=== PATIENT | female | born 1985 | race Caucasian/White ===

== ENCOUNTER 2016-02-25 13:39 | Emergency (ER) | payer SELFPAY ==
--- NOTE | 2016-02-25 13:50 | ER Document Report ---
ED Medical Screen (RME) - General Stated Complaint: COLD SYMPTOMS Notes: Cough congestion with discharge over the last 3-4 days. I greeted and performed a rapid initial assessment of this patient. Comprehensive ED assessment and evaluation of the patient, analysis of test results and completion of the medical decision making process will be conducted by additional ED providers. - Related Data Allergies/Adverse Reactions: No Known Allergies Allergy (Verified 09/06/13 08:52) Past Medical History - Immunizations Immunizations up to date: No Hx Diphtheria, Pertussis, Tetanus Vaccination: Yes Physical Exam - Vital signs Vitals: Temp Pulse Resp BP Pulse Ox 99.0 F 98 16 125/72 97 02/25/16 13:48 02/25/16 13:48 02/25/16 13:48 02/25/16 13:48 02/25/16 13:48 Course - Vital Signs Vital signs: Temp Pulse Resp BP Pulse Ox 99.0 F 98 16 125/72 97 02/25/16 13:48 02/25/16 13:48 02/25/16 13:48 02/25/16 13:48 02/25/16 13:48
[2016-02-25] MEDS ORDERED: PREDNISONE 20 MG TABLET PO ONE (14:46)
[2016-02-25] MEDS ORDERED: ALBUTEROL SULFATE HFA (90 MCG/PUFF) 8 GM MDI (1 MDI/ER DISP) IH ONE (14:46)
--- NOTE | 2016-02-25 14:47 | ER Document Report ---
ED Respiratory Problem - General Chief Complaint: Cough Stated Complaint: COLD SYMPTOMS Time seen by provider: 14:35 Mode of Arrival: Ambulatory Information source: Patient, [facility] Records Notes: This 30-year-old female patient comes emergency room with 2 day history of dry cough, sore throat, short of breath and hard to breathe. She also complains of fatigue. She does smoke a half pack a day and occasionally drinks alcohol. Patient she takes is the Depo shot she received a few weeks ago. There is no history of fever. TRAVEL OUTSIDE OF THE [place] 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 denies: Fever EENT: Throat pain Cardiovascular: No symptoms reported Respiratory: Cough, Hurts to breathe, Short of breath, Wheezing. denies: Sputum Gastrointestinal: No symptoms reported Genitourinary: No symptoms reported Female Genitourinary: No symptoms reported Musculoskeletal: No symptoms reported Skin: No symptoms reported Hematologic/Lymphatic: No symptoms reported Neurological/Psychological: No symptoms reported Physical Exam - Vital signs Vitals: Temp Pulse Resp BP Pulse Ox 99.0 F 98 16 125/72 97 02/25/16 13:48 02/25/16 13:48 02/25/16 13:48 02/25/16 13:48 02/25/16 13:48 Interpretation: Normal - HEENT Head: Normocephalic, Atraumatic Eyes: Normal Pupils: PERRL Tympanic membrane: Normal Pharynx: Erythema - Minimal erythema. No: Exudate Neck: Normal - Respiratory Respiratory status: No respiratory distress Breath sounds: Nonproductive cough, Rhonchi, Wheezing - Cardiovascular Rhythm: Regular Heart sounds: Normal auscultation Murmur: No - Abdominal Inspection: Normal - Back Back: Normal - Extremities General upper extremity: Normal inspection General lower extremity: Normal inspection - Neurological Neuro grossly intact: Yes - Psychological Associated symptoms: Normal affect, Normal mood - Skin Skin Temperature: Warm Skin Moisture: Dry Skin Color: Normal Course - Vital Signs Vital signs: Temp Pulse Resp BP Pulse Ox 99.0 F 98 16 125/72 97 02/25/16 13:48 02/25/16 13:48 02/25/16 13:48 02/25/16 13:48 02/25/16 13:48 Discharge - Discharge Clinical Impression: Bronchitis with bronchospasm Upper respiratory tract infection Qualifiers: URI type: unspecified viral URI Qualified Code(s): J06.9 - Acute upper respiratory infection, unspecified; B97.89 - Other viral agents as the cause of diseases classified elsewhere Condition: Stable Disposition: HOME, SELF-CARE Additional Instructions: Bronchitis with Bronchospasm (Wheezing): You have bronchitis with bronchospasm (wheezing). Sometimes people develop wheezing with a chest cold. This occurs either because of an underlying tendency toward asthma or because the virus itself irritates the bronchial tubes. This irritation causes cough, shortness of breath, and wheezing. Emergency treatment of bronchospasm may include adrenaline shots or bronchodilator aerosol. You may feel lightheaded and have a rapid pulse for an hour or two. Rest and get plenty of fluids. At home, we'll treat you with a bronchodilator inhaler. Corticosteroids may be required for some patients. Until you recover, avoid chemical fumes, dusts, pollens, and exercising in very cold or dry air. If you smoke, stop now! Most cases of bronchitis get better without antibiotics. We prescribe antibiotics when we believe bacteria are damaging your airways, or if there's high risk the bronchitis will worsen into pneumonia. Increase your fluid intake. A cool mist humidifier may make your lungs more comfortable. An expectorant (cough medicine that loosens phlegm) can help. Repeated episodes of bronchitis and bronchospasm may result in lung damage -- for example, chronic bronchitis, recurrent pneumonias, or emphysema. If you develop a fever, increased wheezing, chest pain, or severe shortness of breath, you should contact the doctor immediately. START THE PREDNISONE PRESCRIBED TOMORROW. USE THE INHALER 2 PUFFS EVERY 4 HOURS FOR WHEEZING NEEDED. DRINK PLENTY OF FLUIDS. TRY ROBITUSSIN-DM FOR COUGH. TAKE TYLENOL AND MOTRIN FOR PAIN AND FEVER IF NEEDED. REST. STOP SMOKING. FOLLOW UP WITH A LOCAL MEDICAL DOCTOR IF NOT IMPROVING. RETURN TO THE EMERGENCY ROOM IF ANY NEW OR WORSENING SYMPTOMS. Prescriptions: Prednisone [Deltasone 10 mg Tablet] 10 mg PO ASDIR PRN #21 tablet PRN Reason:
[2016-02-25 15:10] VITALS: BP 130/81
== END 2016-02-25 15:16 | disposition home or self-care (01) ==
LOC: ER 13:39
DX: J40 Bronchitis, not specified as acute or chronic (principal); J06.9 Acute upper respiratory infection, unspecified; B97.89 Other viral agents as the cause of diseases classified elsewhere; R05 Cough; J02.9 Acute pharyngitis, unspecified; R06.02 Shortness of breath; R53.83 Other fatigue; R07.1 Chest pain on breathing; R06.2 Wheezing; F17.210 Nicotine dependence, cigarettes, uncomplicated; Z79.3 Long term (current) use of hormonal contraceptives
CPT/HCPCS: 99283; J7512; J3490

== ENCOUNTER 2017-08-25 10:19 | Inpatient (IN) | payer SELFPAY ==
[2017-08-25] MEDS ORDERED: NORMAL SALINE 1000 ML 1,000 ML IV ONE (10:39)
[2017-08-25] MEDS ORDERED: FENTANYL CITRATE INJ/PF 100 MCG/2 ML AMPUL IV ONE (10:39)
--- NOTE | 2017-08-25 10:41 | ER Document Report ---
ED Medical Screen (RME) - General Chief Complaint: Abdominal Pain Stated Complaint: ABDOMINAL PAIN Time Seen by Provider: 08/25/17 10:35 Notes: RAPID MEDICAL EVALUATION DISCLOSURE I have seen this patient as part of a Rapid Medical Evaluation and, if applicable, placed any initially appropriate orders. The patient will be seen and fully evaluated, including a full history and physical exam, by a provider ( in Main ED or Fast Track) when a room becomes available. 32-year-old female here with complaints of diffuse abdominal pain that started yesterday while she was at work. Pain is worse with movement. Pain is improved with minimizing movement. She has tried Advil without much relief. She has had one episode of diarrhea but denies any fevers chills nausea vomiting dysuria hematuria frequency hesitancy. She denies any previous history of intra-abdominal surgery. EXAM Moderate tachycardia Diffuse moderate abdominal TTP Exquisite right lower quadrant TTP TRAVEL OUTSIDE OF THE [place] IN LAST 30 DAYS: No - Related Data Allergies/Adverse Reactions: No Known Allergies Allergy (Verified 08/25/17 10:35) Past Medical History - Social History Frequency of alcohol use: Social Renal/ Medical History: Denies: Hx Peritoneal Dialysis - Immunizations Immunizations up to date: No Hx Diphtheria, Pertussis, Tetanus Vaccination: Yes Physical Exam - Vital signs Vitals: Temp Pulse Resp BP Pulse Ox 99.8 F 123 H 18 132/77 H 99 08/25/17 10:08/25/17 10:08/25/17 10:08/25/17 10:08/25/17 10:24 Course - Vital Signs Vital signs: Temp Pulse Resp BP Pulse Ox 99.8 F 123 H 18 132/77 H 99 08/25/17 10:24 08/25/17 10:24 08/25/17 10:24 08/25/17 10:24 08/25/17 10:24
[2017-08-25 11:35] LABS: HEMOGLOBIN 13.9 g/dL (12.0-15.5); MEAN CORPUSCULAR HEMOGLOBIN 31.4 pg (27.0-33.4); MEAN CORPUSCULAR HGB CONC 33.9 g/dL (32.0-36.0); MEAN CORPUSCULAR VOLUME 93 fl (80-97); PLATELET COUNT 271 10^3/uL (150-450); RED BLOOD COUNT 4.43 10^6/uL (3.72-5.28); RED CELL DISTRIBUTION WIDTH 13.6 % (11.5-14.0); WHITE BLOOD COUNT 17.9 10^3/uL (4.0-10.5)
[2017-08-25 11:47] LABS: APPEARANCE,URINE CLOUDY; BILIRUBIN,URINE NEGATIVE (NEGATIVE); COLOR,URINE YELLOW; GLUCOSE, URINE NEGATIVE (NEGATIVE); KETONES,URINE 80 mg/dL (NEGATIVE); LEUKOCYTE ESTERASE,URINE TRACE (NEGATIVE); NITRITE,URINE POSITIVE (NEGATIVE); PROTEIN,URINE NEGATIVE (NEGATIVE); URINE SPECIFIC GRAVITY 1.014; UROBILINOGEN,URINE NEGATIVE mg/dL (<2.0)
[2017-08-25 11:52] LABS: ALANINE AMINOTRANSFERASE 60 U/L (9-52); ALBUMIN 4.2 g/dL (3.5-5.0); ALKALINE PHOSPHATASE 126 U/L (38-126); ANION GAP 11 (5-19); ASPARTATE AMINO TRANSFERASE 44 U/L (14-36); BILIRUBIN,DIRECT 0.3 mg/dL (0.0-0.4); BILIRUBIN,TOTAL 0.9 mg/dL (0.2-1.3); BLOOD UREA NITROGEN 5 mg/dL (7-20); CALCIUM 9.6 mg/dL (8.4-10.2); CARBON DIOXIDE 28 mmol/L (22-30); CHLORIDE 98 mmol/L (98-107); GLUCOSE 105 mg/dL (75-110); LIPASE 58.3 U/L (23-300); POTASSIUM 3.7 mmol/L (3.6-5.0)
[2017-08-25 11:53] LABS: ABSOLUTE LYMPHOCYTES# (MANUAL) 0.5 10^3/uL (0.5-4.7); ABSOLUTE MONOCYTES # (MANUAL) 1.6 10^3/uL (0.1-1.4); ABSOLUTE NEUTROPHILS# (MANUAL) 15.8 10^3/uL (1.7-8.2); BAND NEUTROPHILS % (MANUAL) 7 % (3-5); BASOPHILS % (MANUAL) 0 % (0-2); EOSINOPHILS % (MANUAL) 0 % (0-6); LYMPHOCYTES % (MANUAL) 3 % (13-45); MONOCYTES % (MANUAL) 9 % (3-13); SEGMENTED NEUTROPHILS % (MAN) 81 % (42-78); TOTAL CELLS COUNTED 100
[2017-08-25 11:54] LABS: PLATELET COMMENT ADEQUATE; RBC MORPHOLOGY COMMENT NORMO-CYTIC/CHROMIC; TOXIC GRANULATION 1+; TOXIC VACUOLATION PRESENT
--- NOTE | 2017-08-25 12:46 | ER Document Report ---
ED General - General TRAVEL OUTSIDE OF THE [place] IN LAST 30 DAYS: No <RAMON TOURE - Last Filed: 08/25/17 18:57> <MOISES IRIZARRY - Last Filed: 08/26/17 02:07> - General Chief Complaint: Abdominal Pain Stated Complaint: ABDOMINAL PAIN Time Seen by Provider: 08/25/17 10:35 - HPI Notes: Patient is a 32-year-old female with no significant past medical history who presents to the ED complaining of generalized abdominal pain 1 day that has been relatively constant. Patient states that she has had a decreased p.o. intake due to the pain. She does have associated nausea because of the pain without any vomiting. Patient states that she did have 2 episodes of diarrhea one yesterday and one this morning. Patient states that she is still urinating normally. She has not noticed any vaginal discharge, odor, or bleeding. She denies any drug allergies. Pain does not radiate. Patient states that she has no concern of STD or STI. Denies any headache, fever, neck pain, URI, sore throat, chest pain, palpitations, syncope, cough, shortness of breath, wheeze, dyspnea, urinary retention, dysuria, hematuria, back pain, loss of control of bowel or bladder, numbness/tingling, muscle paralysis/weakness, or rash. (RAMON TOURE) - Related Data Allergies/Adverse Reactions: No Known Allergies Allergy (Verified 08/25/17 10:35) Past Medical History - Social History Smoking Status: Current Every Day Smoker Frequency of alcohol use: Social Family History: Reviewed & Not Pertinent Patient has suicidal ideation: No Patient has homicidal ideation: No Renal/ Medical History: Denies: Hx Peritoneal Dialysis - Immunizations Immunizations up to date: No Hx Diphtheria, Pertussis, Tetanus Vaccination: Yes <RAMON TOURE - Last Filed: 08/25/17 18:57> Review of Systems - Review of Systems -: Yes All other systems reviewed and negative <RAMON TOURE - Last Filed: 08/25/17 18:57> Physical Exam <RAMON TOURE - Last Filed: 08/25/17 18:57> <MOISES IRIZARRY - Last Filed: 08/26/17 02:07> - Vital signs Vitals: Temp Pulse Resp BP Pulse Ox 99.8 F 123 H 18 132/77 H 99 08/25/17 10:24 08/25/17 10:24 08/25/17 10:24 08/25/17 10:24 08/25/17 10:24 - Notes Notes: PHYSICAL EXAMINATION: GENERAL: Well-appearing, well-nourished and in no acute distress. HEAD: Atraumatic, normocephalic. EYES: Pupils equal round and reactive to light, extraocular movements intact, sclera anicteric, conjunctiva are normal. ENT: Nares patent and without discharge. oropharynx clear without exudates. No tonsilar hypertrophy or erythema. Moist mucous membranes. NECK: Normal range of motion, supple without lymphadenopathy LUNGS: Breath sounds clear to auscultation bilaterally and equal. No wheezes rales or rhonchi. HEART: Tachycardic, Regular rate and rhythm without murmurs, rubs, gallops. ABDOMEN: + mild distention. + tenderness generalized. Minimal guarding, no rebound. No masses appreciated. Normal bowel sounds present. No CVA tenderness bilaterally. : deferred Musculoskeletal: FROM to passive/active. Strength 5+/5. Extremities: No cyanosis, clubbing, or edema b/l. Peripheral pulses 2+. Capillary refill less than 3 seconds. NEUROLOGICAL: Normal speech, normal gait. PSYCH: Normal mood, normal affect. SKIN: Warm, Dry, normal turgor, no rashes or lesions noted. (RAMON TOURE) Course - Laboratory Result Diagrams: 08/25/17 11:00 08/25/17 11:00 <RAMON OTURE - Last Filed: 08/25/17 18:57> - Laboratory Result Diagrams: 08/25/17 11:00 08/25/17 11:00 <MOISES IRIZARRY - Last Filed: 08/26/17 02:07> - Re-evaluation Re-evalutation: 08/25/17 16:[address] Paz who will be evaluating the patient. 08/25/17 17:19 Dr. Paz evaluated the patient and believes that she may have an acute abdomen. He would like Zosyn IV and a p.o. only contrast CT to further clarify as only IV was performed previously. Patient to be n.p.o. He also would like her to have [address] Paz to be consulted once result comes back. 08/25/17 19:00 Pt is doing well with no new concerns or complaints. Care transferred at bedside to Moises Pantoja PA-C. (RAMON TOURE) Patient uncomfortable appearing at bedside, tachycardic, no hypotension. She declined pain medication on initial evaluation. CAT scan results and, indicates 11 cm right-sided ovarian mass and 6 cm left- sided ovarian mass. Appendix is normal. Patient reevaluated, having more pain , she will be medicated, temperature was rechecked and she was found to be febrile at 102.2, this will be treated as well. I performed a pelvic exam with Breanna BROWN at bedside, this showed a large amount of purulent discharge, tenderness. Will perform ultrasound because of patient's worsening pain to confirm ovarian perfusion. I called and spoke with Dr. Paz, surgeon. 08/26/17 02:01 Ultrasound results very delayed, delay in radiology reading the results, eventually this was completed. Shows pyosalpinx, hydrosalpinx, ultrasound consistent with tubo-ovarian abscess. Good Doppler flow bilaterally. Patient has already been given doxycycline, Flagyl, and earlier today was given a dose of Zosyn. Called and spoke with Dr. Lou, RESOURCE DIRECTOR, request patient be given Mefoxin and admitted to the second floor at this time. Patient states understanding and agreement with plan. (MOISES IRIZARRY) - Vital Signs Vital signs: Temp Pulse Resp BP Pulse Ox 99.3 F 109 H 22 H 123/80 96 08/25/17 23:30 08/25/17 17:36 08/25/17 23:30 08/26/17 01:00 08/26/17 01:01 - Laboratory Laboratory results interpreted by me: 08/25/17 08/25/17 08/25/17 10:45 11:00 11:00 WBC 17.9 H Seg Neuts % (Manual) 81 H Band Neutrophils % 7 H Lymphocytes % (Manual) 3 L Abs Neuts (Manual) 15.8 H Abs Monocytes (Manual) 1.6 H BUN 5 L AST 44 H ALT 60 H Total Protein 9.0 H Urine Ketones 80 H Urine Blood SMALL H Urine Nitrite POSITIVE H Ur Leukocyte Esterase TRACE H Discharge <RAMON TOURE - Last Filed: 08/25/17 18:57> - Discharge Admitting Provider: [facility] Unit Admitted: Labor and Delivery <MOISES IRIZARRY - Last Filed: 08/26/17 02:07> - Discharge Clinical Impression: TOA (tubo-ovarian abscess), PID (acute pelvic inflammatory disease) Leukocytosis Qualifiers: Leukocytosis type: unspecified Qualified Code(s): D72.829 - Elevated white blood cell count, unspecified Fever Qualifiers: Fever type: unspecified Qualified Code(s): R50.9 - Fever, unspecified Condition: Stable Disposition: ADMITTED INPATIENT
[2017-08-25] MEDS: NORMAL SALINE 1000 ML 1,000 ML IV PRN ×4 (13:08→20:49)
--- NOTE | 2017-08-25 13:30 | RADIOLOGY REPORT (SQ) ---
EXAM DESCRIPTION: CT ABD/PELVIS WITH IV ONLY COMPLETED DATE/TIME: 08/25/2017 12:32 pm REASON FOR STUDY: diffuse abd pain; free air appendicitis colitis? COMPARISON: None. TECHNIQUE: CT scan of the abdomen and pelvis performed using helical scanning technique with dynamic intravenous contrast injection. No oral contrast. Images reviewed with lung, soft tissue, and bone windows. Reconstructed coronal and sagittal MPR images reviewed. Delayed images for evaluation of the urinary system also acquired. All images stored on PACS. All CT scanners at this facility use dose modulation, iterative reconstruction, and/or weight based d osing when appropriate to reduce radiation dose to as low as reasonably achievable (ALARA). [facility]: Dose Right [facility]: CareDose [facility]: Dose Right [facility]: Teradose 4D [facility]: [place] CONTRAST TYPE AND DOSE: contrast/concentration: Isovue 370.00 mg/ml; Total Contrast Delivered: 61.0 ml; Total Saline Delivered: 57.1 ml RENAL FUNCTION: Creatinine -0.54 BUN=54 RADIATION DOSE: CT Rad equipment meets quality standard of care and radiation dose reduction techniq ues were employed. CTDIvol: 5.7 - 6.8 mGy. DLP: 689 mGy-cm.. LIMITATIONS: None. FINDINGS: LOWER CHEST: Mild dependent atelectasis in the posterior lower lobes bilaterally. LIVER: Normal size. No masses. No dilated ducts. The hepatic and portal veins are patent. SPLEEN: Splenule, normal anatomic variant. PANCREAS: No masses. No significant calcifications. No adjacent inflammation or peripancreatic fluid collections. Pancreatic duct not dilated. GALLBLADDER: No identified stones by CT criteria. No inflammatory changes to suggest cholecystitis. ADRENAL GLANDS: No significant masses or asymmetry. RIGHT KIDNEY AND URETER: No solid masses. No significant calcifications. No hydronephrosis or hyd roureter. LEFT KIDNEY AND URETER: No solid masses. No significant calcifications. No hydronephrosis or hydr oureter. AORTA AND VESSELS: No aneurysm. No dissection. Renal arteries, SMA, celiac without stenosis. RETROPERITONEUM: No retroperitoneal adenopathy, hemorrhage or masses. BOWEL AND PERITONEAL CAVITY: There are multiple fluid filled dilated small bowel loops and dilatatio n of the cecum and ascending colon. The cecum measures approximately 5.2 cm in diameter on the coron al image. In the pelvic region, there are multiple dilated bowel loops adjacent to the uterus and th e adnexal regions bilaterally. The ovaries and the appendix are not definitively visualized. It is difficult to determine if there is an abnormal appendix present or abnormality involving the ovaries. No free fluid is identified. APPENDIX: Not visualized. PELVIS: See discussion above. ABDOMINAL WALL: No masses. No hernias. BONES: No significant or acute findings. OTHER: No other significant finding. IMPRESSION: 1 Dilatation of multiple fluid filled dilated small bowel loops and dilatation of the ce cum/ascending colon. The appendix and the ovaries are not definitively visualized. It is difficult to determine if appendicitis/abscess or ovarian pathology maybe present. Further evaluation with Jessa maddison consult and or CT abdomen and pelvis examinations with oral contrast may be helpful. Correlatio n with lab values also suggested. COMMENT: 1 The results of this examination were discussed with emergency room provider on 08/25/2017 at 13:17 hours. TECHNICAL DOCUMENTATION: 1 JOB ID: [id number] Quality ID # [id number]: Final reports with documentation of one or more dose reduction techniques (e.g., Au tomated exposure control, adjustment of the mA and/or kV according to patient size, use of iterative reconstruction technique) 2010 [employer]- All Rights Reserved Reading location - IP/workstation name: [email or web address]
[2017-08-25] MEDS ORDERED: MORPHINE SULFATE 10 MG/ML INJ IV ONE (14:45)
[2017-08-25] MEDS ORDERED: PIPERACILLIN/TAZOBACTAM 3.375 GM VIAL IV ONE (17:18)
[2017-08-25] MEDS ORDERED: HYDROMORPHONE HCL INJ/PF 2 MG/ML AMPULE IV ONE ×3 (17:21→22:25)
--- NOTE | 2017-08-25 22:10 | RADIOLOGY REPORT (SQ) ---
EXAM DESCRIPTION: CT ABD/PELVIS WITH IV ORAL COMPLETED DATE/TIME: 08/25/2017 9:56 pm REASON FOR STUDY: abd pain , possible appy? COMPARISON: None. TECHNIQUE: CT scan of the abdomen and pelvis performed with intravenous and oral contrast using mario sangita scanning technique with dynamic intravenous contrast injection. Images reviewed with lung, soft t issue, and bone windows. Reconstructed coronal and sagittal MPR images reviewed. Delayed images for e valuation of the urinary system also acquired. All images stored on PACS. All CT scanners at this facility use dose modulation, iterative reconstruction, and/or weight based d osing when appropriate to reduce radiation dose to as low as reasonably achievable (ALARA). [facility]: Dose Right [facility]: CareDose [facility]: Dose Right [facility]: Teradose 4D [facility]: [employer] CONTRAST TYPE AND DOSE: contrast/concentration: Isovue 370.00 mg/ml; Total Contrast Delivered: 61.0 ml; Total Saline Delivered: 40.0 ml RENAL FUNCTION: None required. The patient is less than 50 years old. RADIATION DOSE: CT Rad equipment meets quality standard of care and radiation dose reduction techniq ues were employed. CTDIvol: 4.8 - 5.1 mGy. DLP: 531 mGy-cm. . LIMITATIONS: None. FINDINGS: LOWER CHEST: No significant findings. No nodules or infiltrates. LIVER: Normal size. No masses. No dilated ducts. SPLEEN: Normal size. No focal lesions. PANCREAS: No masses. No significant calcifications. No adjacent inflammation or peripancreatic fluid collections. Pancreatic duct not dilated. GALLBLADDER: No identified stones by CT criteria. No inflammatory changes to suggest cholecystitis. ADRENAL GLANDS: No significant masses or asymmetry. RIGHT KIDNEY AND URETER: No solid masses. No significant calcifications. No hydronephrosis or hyd roureter. LEFT KIDNEY AND URETER: No solid masses. No significant calcifications. No hydronephrosis or hydr oureter. AORTA AND VESSELS: No aneurysm. No dissection. Renal arteries, SMA, celiac without stenosis. RETROPERITONEUM: No retroperitoneal adenopathy, hemorrhage or masses. BOWEL AND PERITONEAL CAVITY: No obstruction. No visualized masses. No free fluid. No inflammatory ch anges or thickening of bowel wall. APPENDIX: Normal. PELVIS: 11 cm complex right adnexal mass. 6 cm complex left adnexal mass. ABDOMINAL WALL: No masses. No hernias. BONES: No significant or acute findings. OTHER: No other significant finding. IMPRESSION: 11 cm complex right adnexal mass. 6 cm complex left adnexal mass. Differential include s pelvic inflammatory disease as well as complex cystic disease and endometriosis. Appendix is normal. TECHNICAL DOCUMENTATION: JOB ID: [id number] Quality ID # [id number]: Final reports with documentation of one or more dose reduction techniques (e.g., Au tomated exposure control, adjustment of the mA and/or kV according to patient size, use of iterative reconstruction technique) 2010 [employer]- All Rights Reserved Reading location - IP/workstation name: [email or web address]
[2017-08-25] MEDS ORDERED: ACETAMINOPHEN 325 MG TABLET PO ONE (22:17)
[2017-08-25 23:04] LABS: BACTERIA (WET MOUNT) 4+ BACTERIA SEEN; EPITHELIALS (WET MOUNT) 3+ EPITHELIALS SEEN; T.VAGINALIS (WET MOUNT) TRICHOMONAS SEEN; WBCS (WET MOUNT) 3+ WBCS SEEN; YEAST (WET MOUNT) NO YEAST SEEN
[2017-08-25] MEDS ORDERED: METRONIDAZOLE 500 MG TABLET PO ONE (23:10)
--- NOTE | 2017-08-25 23:13 | PDOC CONSULTATION ---
Consultation Consult Date: 08/25/17 Consult reason:: abdominal pains History of Present Illness History of Present Illness: RUBEN GREER is a 32 year old female who c/o back pains last week followed by severe diffuse abdominal pains last night asso with nausea and diarrhea. Denies fever ,chills, dysuria nor vaginal discharge. Past Medical History Infectious History Note: Claims she was diagnosed with chlamydia infection at age 18. Social History Smoking Status: Current Every Day Smoker Family History Family History: Reviewed & Not Pertinent Parental Family History Reviewed: Yes - mother healthy. Does not know father history Children Family History Reviewed: No Sibling(s) Family History Reviewed.: No Medication/Allergy Home Medications: Penicillin V Potassium [Penicillin Vk 500 mg Tablet] 500 mg PO BID #20 tablet Tramadol HCl [Ultram 50 mg Tablet] 50 mg PO ASDIR PRN #20 tablet 09/06/13 Prednisone [Deltasone 10 mg Tablet] 10 mg PO ASDIR PRN #21 tablet 02/25/16 Allergies/Adverse Reactions: No Known Allergies Allergy (Verified 08/25/17 10:35) Review of Systems All systems: reviewed and no additional remarkable complaints except as stated - as in HPI. Rest of other systems unremarkable. Eyes: PRESENT: other - no visual/hearing changes Respiratory: PRESENT: other - no cough/chest pains Gastrointestinal: PRESENT: abdominal pain, diarrhea, nausea Hematologic/Lymphatic: PRESENT: other - no easy bruising Physical Exam Vital Signs: Temp Pulse Resp BP Pulse Ox 102.2 F H 109 H 16 146/96 H 99 08/25/17 22:15 08/25/17 17:36 08/25/17 17:36 08/25/17 22:15 08/25/17 22:15 Intake & Output 08/24/17 08/25/17 08/26/17 06:59 06:59 06:59 Weight 56.4 kg General appearance: PRESENT: severe distress Head exam: PRESENT: atraumatic Eye exam: PRESENT: conjunctiva pink Mouth exam: PRESENT: dry mucosa Neck exam: PRESENT: full ROM Respiratory exam: PRESENT: clear to auscultation suzanna Cardiovascular exam: PRESENT: tachycardia Pulses: PRESENT: normal radial pulses Vascular exam: PRESENT: normal capillary refill GI/Abdominal exam: PRESENT: rebound, soft, tenderness - diffuse with primary at lower quadrants Rectal exam: PRESENT: deferred Extremities exam: PRESENT: full ROM Musculoskeletal exam: PRESENT: ambulatory Neurological exam: PRESENT: alert, oriented to person, oriented to place, oriented to time, oriented to situation Psychiatric exam: PRESENT: appropriate affect Skin exam: PRESENT: normal color, warm Results Laboratory Results: 08/25/17 11:00 08/25/17 11:00 08/25/17 08/25/17 08/25/17 10:45 11:00 11:00 WBC 17.9 H RBC 4.43 Hgb 13.9 Hct 41.0 MCV 93 MCH 31.4 MCHC 33.9 RDW 13.6 Plt Count 271 Seg Neutrophils % Not Reportable Lymphocytes % Not Reportable Monocytes % Not Reportable Eosinophils % Not Reportable Basophils % Not Reportable Absolute Neutrophils Not Reportable Absolute Lymphocytes Not Reportable Absolute Monocytes Not Reportable Absolute Eosinophils Not Reportable Absolute Basophils Not Reportable Sodium 137.0 Potassium 3.7 Chloride 98 Carbon Dioxide 28 Anion Gap 11 BUN 5 L Creatinine 0.54 Est GFR ( Amer) > 60 Est GFR (Non-Af Amer) > 60 Glucose 105 Lactic Acid Calcium 9.6 Total Bilirubin 0.9 AST 44 H ALT 60 H Alkaline Phosphatase 126 Total Protein 9.0 H Albumin 4.2 Lipase 58.3 Urine Color YELLOW Urine Appearance CLOUDY Urine pH 5.0 Ur Specific [place] 1.014 Urine Protein NEGATIVE Urine Glucose (UA) NEGATIVE Urine Ketones 80 H Urine Blood SMALL H Urine Nitrite POSITIVE H Ur Leukocyte Esterase TRACE H Urine WBC (Auto) 9 Urine RBC (Auto) 8 08/25/17 13:10 WBC RBC Hgb Hct MCV MCH MCHC RDW Plt Count Seg Neutrophils % Lymphocytes % Monocytes % Eosinophils % Basophils % Absolute Neutrophils Absolute Lymphocytes Absolute Monocytes Absolute Eosinophils Absolute Basophils Sodium Potassium Chloride Carbon Dioxide Anion Gap BUN Creatinine Est GFR ( Amer) Est GFR (Non-Af Amer) Glucose Lactic Acid 1.0 Calcium Total Bilirubin AST ALT Alkaline Phosphatase Total Protein Albumin Lipase Urine Color Urine Appearance Urine pH Ur Specific [place] Urine Protein Urine Glucose (UA) Urine Ketones Urine Blood Urine Nitrite Ur Leukocyte Esterase Urine WBC (Auto) Urine RBC (Auto) Impressions: Abdomen/Pelvis CT 08/25/17 17:16 IMPRESSION: 11 cm complex right adnexal mass. 6 cm complex left adnexal mass. Differential includes pelvic inflammatory disease as well as complex cystic disease and endometriosis. Appendix is normal. Assessment & Plan - Diagnosis (1) Acute abdomen Is this a current diagnosis for this admission?: Yes - Time Time Spent: 30 to 50 Minutes - Plan Summary Plan Summary: Repeat CT scan showed unremarkable abdominal findings-no obstruction,normal appendix. However has a pelvic lesions with possible ruptured cyst. Agree to get pelvic ultrasound and manager [employer] consult No general surgical problem
[2017-08-26 00:31] LABS: CHLAM PCR NOT DETECTED (NOT DETECT); GON PCR NOT DETECTED (NOT DETECT)
[2017-08-26] MEDS ORDERED: DOXYCYCLINE HYCLATE INJ 100 MG VIAL IV ONE (01:09)
--- NOTE | 2017-08-26 01:33 | RADIOLOGY REPORT (SQ) ---
EXAM DESCRIPTION: US PELVIS COMPLETED DATE/TME: 08/25/2017 22:14 CLINICAL HISTORY: 32 years, Female, eval pelvic masses; pain; check blood flow COMPARISON: CT done on the same date TECHNIQUE: Transabdominal and transvaginal images of the pelvis were obtained with Doppler images. LIMITATIONS: None. FINDINGS: The uterus is anteverted and measures 9.4 x 4.1 x 2.8 cm. The endometrium measures 6.5 mm in thickness. The cervix measures 3 cm in length. The right adnexa measures 7.3 x 4.6 x 4.6 areas. There multiple cystic areas, the largest of which measures 4.1 x 2.9 x 2.9 cm. The right adnexa demonstrates normal dopplerable flow. The left adnexa measures 3.7 x 2.2 x 3.1 cm. There is normal dopplerable flow. A dilated fluid-filled structure is noted adjacent to the left adnexa, likely representing hydrosalpinx/hydrosalpinx. IMPRESSION: Dilated fluid-filled tubular structure near the left adnexa, likely representing pyosalpinx/hydrosalpinx. Cystic lesions near the right adnexa, concerning for a tubo-ovarian abscess. 2011 [employer]- All Rights Reserved
[2017-08-26] MEDS ORDERED: HYDROMORPHONE HCL INJ/PF 2 MG/ML AMPULE IV ONE ×2 (01:47→05:00)
[2017-08-26] MEDS ORDERED: CEFOXITIN 1 GM/D5W RTU 1 GM/50 ML RTUPB IV ONE (01:55)
[2017-08-26] MEDS ORDERED: CEFOXITIN INJ 1 GM VIAL IV SCH (06:30)
[2017-08-26] MEDS ORDERED: DOXYCYCLINE HYCLATE INJ 100 MG VIAL IV SCH (06:30)
--- NOTE | 2017-08-26 07:05 | PDOC H&P ---
History of Present Illness Admission Date/PCP: 08/26/17 02:00 Patient complains of: diffuse lower abdominal pain and diarrhea x 3 days History of Present Illness: RUBEN GREER is a 32 year old female G0 who indicates she started feeling poorly on 08/24/2017. Began having diarrhea and nausea but no vomiting. Lower abdominal pain diffuse through the lower abdomen Past Medical History LMP: 2 weeks ago Menses: monthly Gynecological Infection: Yes - at 18 yr old Obstetrical History: none Social History Smoking Status: Current Every Day Smoker Cigarettes Packs Per Day: 0.5 Number of Years Smokin Last Time Smoked: 08/25/17 Frequency of Alcohol Use: Social Amount of Alcoholic Beverages Per Day: average 1 per day Hx Recreational Drug Use: No Drugs: None Hx Prescription Drug Abuse: No - Advance Directive Resuscitation Status: Full Code Family History Family History: Reviewed & Not Pertinent Parental Family History Reviewed: Yes - Grandmother with breast/ovarian cancer Children Family History Reviewed: NA Sibling(s) Family History Reviewed.: Yes Medication/Allergy Home Medications: No Home Medications 08/26/17 Allergies/Adverse Reactions: No Known Allergies Allergy (Verified 08/25/17 10:35) Physical Exam - Physical Exam Vital Signs: Temp Pulse Resp BP Pulse Ox 100.0 F 108 H 18 126/82 H 98 08/26/17 04:49 08/26/17 04:49 08/26/17 04:49 08/26/17 04:49 08/26/17 04:49 General appearance: PRESENT: no acute distress, cooperative, thin, well- developed Head exam: PRESENT: atraumatic GI/Abdominal exam: PRESENT: normal bowel sounds, soft, tenderness - lower abdomen bilateral Neurological exam: PRESENT: alert, awake, oriented to person, oriented to place , oriented to time - Obstetrical Exam Fundal Height: u/3 - u/4 Tender: Yes Adhexa: tender Result Impressions: Abdomen/Pelvis CT 08/25/17 17:16 IMPRESSION: 11 cm complex right adnexal mass. 6 cm complex left adnexal mass. Differential includes pelvic inflammatory disease as well as complex cystic disease and endometriosis. Appendix is normal. Transvaginal US 08/25/17 22:14 IMPRESSION: Dilated fluid-filled tubular structure near the left adnexa, likely representing pyosalpinx/hydrosalpinx. Cystic lesions near the right adnexa, concerning for a tubo-ovarian abscess. 2010 [employer]- All Rights Reserved Status: Image reviewed by me Assessment & Plan - Diagnosis (1) Fever Qualifiers: Fever type: unspecified Qualified Code(s): R50.9 - Fever, unspecified Is this a current diagnosis for this admission?: Yes (2) Leukocytosis Qualifiers: Leukocytosis type: unspecified Qualified Code(s): D72.829 - Elevated white blood cell count, unspecified Is this a current diagnosis for this admission?: Yes (3) PID (acute pelvic inflammatory disease) Is this a current diagnosis for this admission?: Yes (4) TOA (tubo-ovarian abscess) Is this a current diagnosis for this admission?: Yes - Time Time Spent: 30 to 50 Minutes Critical Time spent with patient: Less than 15 minutes Anticipated discharge: Home Within: within 72 hours - Inpatient Certification Based on my medical assessment, after consideration of the patient's comorbidities, presenting symptoms, or acuity I expect that the services needed warrant INPATIENT care.: Yes I certify that my determination is in accordance with my understanding of Medicare's requirements for reasonable and necessary INPATIENT services [42 CFR 412.3e].: Yes Medical Necessity: Need for IV Antibiotics, Risk of Complication if Not Cared For in Hospital - Plan Summary Plan Summary: d/w patient and her partner regarding evidence of TOA on imaging. Explained that most will respond to IV antibiotics but that there is a small possiblity of requiring drainage by Interventional Radiology. Will monitor closely for changes. General Surgery has already assessed patient and indicates there is no evidence of obstruction. Will reconsult if condition worsens. Patient may eat unless condition worsens.
[2017-08-26] MEDS: OXYCODONE-ACETAMINOPHEN 5-325 MG TABLET PO PRN ×2 (08:57→18:36)
[2017-08-26] MEDS: METRONIDAZOLE 500 MG/NS RTU 500 MG/100 ML RTUPB IV SCH ×2 (08:57→21:21)
[2017-08-26] MEDS ORDERED: CEFOXITIN SODIUM 2 GM in DEXTROSE 5%-WATER 100 ML IV SCH (09:00)
[2017-08-26] MEDS: HYDROMORPHONE HCL INJ/PF 2 MG/ML AMPULE IV PRN ×3 (09:41→20:12)
[2017-08-26] MEDS: CEFOXITIN SODIUM 2 GM in NORMAL SALINE 100 ML IV SCH ×3 (10:55→22:30)
[2017-08-26] MEDS: DOXYCYCLINE HYCLATE 100 MG in DEXTROSE 5%-WATER 250 ML IV SCH ×2 (12:13→23:16)
[2017-08-26] MEDS ORDERED: NICOTINE 21 MG/24 HR PATCH.TD24 TD ONE (14:00)
[2017-08-26] MEDS: ONDANSETRON 4 MG TAB.RAPDIS PO PRN (18:36)
[2017-08-27] MEDS: IBUPROFEN 800 MG TABLET PO PRN ×2 (00:43→22:27)
[2017-08-27] MEDS: ZOLPIDEM TARTRATE 5 MG TABLET PO PRN (00:44)
[2017-08-27] MEDS: CEFOXITIN SODIUM 2 GM in NORMAL SALINE 100 ML IV SCH ×4 (03:25→20:18)
[2017-08-27] MEDS: HYDROMORPHONE HCL INJ/PF 2 MG/ML AMPULE IV PRN ×3 (07:03→20:18)
[2017-08-27 08:08] LABS: ABSOLUTE BASOPHILS # (AUTO) 0.1 10^3/uL (0.0-0.2); ABSOLUTE EOSINOPHILS # (AUTO) 0.1 10^3/uL (0.0-0.6); ABSOLUTE LYMPHOCYTES (AUTO) 0.8 10^3/uL (0.5-4.7); ABSOLUTE MONOCYTES (AUTO) 1.3 10^3/uL (0.1-1.4); ABSOLUTE NEUT (AUTO) 13.5 10^3/uL (1.7-8.2); BASOPHILS % (AUTO) 0.4 % (0-2); EOSINOPHILS % (AUTO) 0.4 % (0-6); HEMATOCRIT 33.4 % (36.0-47.0); LYMPHOCYTES % (AUTO) 5.3 % (13-45); MEAN CORPUSCULAR HEMOGLOBIN 31.2 pg (27.0-33.4); MEAN CORPUSCULAR HGB CONC 34.4 g/dL (32.0-36.0); MEAN CORPUSCULAR VOLUME 91 fl (80-97); PLATELET COUNT 217 10^3/uL (150-450); RED BLOOD COUNT 3.68 10^6/uL (3.72-5.28); RED CELL DISTRIBUTION WIDTH 13.3 % (11.5-14.0); SEGMENTED NEUTROPHILS % (AUTO) 85.9 % (42-78); TOTAL CELLS COUNTED % (AUTO) 100 %; WHITE BLOOD COUNT 15.7 10^3/uL (4.0-10.5)
[2017-08-27 08:12] LABS: HEMOGLOBIN 11.5 g/dL (12.0-15.5)
[2017-08-27] MEDS: ONDANSETRON 4 MG TAB.RAPDIS PO PRN ×2 (08:12→13:26)
[2017-08-27] MEDS: METRONIDAZOLE 500 MG/NS RTU 500 MG/100 ML RTUPB IV SCH ×2 (09:42→22:23)
[2017-08-27] MEDS: NICOTINE 21 MG/24 HR PATCH.TD24 TD SCH (09:43)
[2017-08-27] MEDS: DOXYCYCLINE HYCLATE 100 MG in DEXTROSE 5%-WATER 250 ML IV SCH ×2 (11:19→23:41)
--- NOTE | 2017-08-27 21:52 | PDOC PROGRESS REPORT ---
Subjective Progress Note for:: 08/27/17 Subjective:: tolerating po intake, pain well controlled when she takes it. + flatus, no BM. appettite improved. Reason For Visit: TUBOOVARIAN ABSCESS,ACUTE PELVIC INFLAMMATORY Physical Exam - Physical Exam Vital Signs: Temp Pulse Resp BP Pulse Ox 98.8 F 89 18 124/85 99 08/27/17 19:53 08/27/17 19:53 08/27/17 19:53 08/27/17 19:53 08/27/17 19:53 Intake & Output 08/26/17 08/27/17 08/28/17 06:59 06:59 06:59 Intake Total 1800 500 Output Total 1900 900 Balance -100 -400 General appearance: PRESENT: no acute distress, well-developed, well-nourished Head exam: PRESENT: atraumatic, normocephalic Respiratory exam: PRESENT: clear to auscultation suzanna, symmetrical, unlabored Cardiovascular exam: PRESENT: RRR. ABSENT: diastolic murmur, rubs, systolic murmur Vascular exam: PRESENT: normal capillary refill GI/Abdominal exam: PRESENT: firm, guarding, normal bowel sounds, soft, tenderness. ABSENT: distended, mass, organolmegaly, rebound Rectal exam: PRESENT: deferred Extremities exam: PRESENT: full ROM. ABSENT: calf tenderness, clubbing, pedal edema Neurological exam: PRESENT: alert, awake, oriented to person, oriented to place , oriented to time, oriented to situation, CN II-XII grossly intact. ABSENT: motor sensory deficit Psychiatric exam: PRESENT: appropriate affect, normal mood. ABSENT: homicidal ideation, suicidal ideation Skin exam: PRESENT: dry, intact, warm. ABSENT: cyanosis, rash - Obstetrical Exam Adhexa: tender Result Laboratory Results: 08/27/17 06:47 08/27/17 06:47 WBC 15.7 H RBC 3.68 L Hgb 11.5 L D Hct 33.4 L MCV 91 MCH 31.2 MCHC 34.4 RDW 13.3 Plt Count 217 Seg Neutrophils % 85.9 H Lymphocytes % 5.3 L Monocytes % 8.0 Eosinophils % 0.4 Basophils % 0.4 Absolute Neutrophils 13.5 H Absolute Lymphocytes 0.8 Absolute Monocytes 1.3 Absolute Eosinophils 0.1 Absolute Basophils 0.1 Impressions: Abdomen/Pelvis CT 08/25/17 17:16 IMPRESSION: 11 cm complex right adnexal mass. 6 cm complex left adnexal mass. Differential includes pelvic inflammatory disease as well as complex cystic disease and endometriosis. Appendix is normal. Transvaginal US 08/25/17 22:14 IMPRESSION: Dilated fluid-filled tubular structure near the left adnexa, likely representing pyosalpinx/hydrosalpinx. Cystic lesions near the right adnexa, concerning for a tubo-ovarian abscess. 2010 [email or web address]- All Rights Reserved Status: Imported from PACS Assessment & Plan - Diagnosis (1) Trichomonal cervicitis Is this a current diagnosis for this admission?: Yes Plan: currently on flagyl IV. Continue for tx of TOA/PID (2) TOA (tubo-ovarian abscess) Is this a current diagnosis for this admission?: Yes Plan: large bilateral TOA. Cont Mefoxy/Doxy/Flagyl. Reviewed may need to have admission until friday am to ensure abx covered. THen would need Abx po for at least 2 wks. Reviewed also that would take some time for the TOA to resolve. She will f/u in office when discharged and plan for interval US eval and poss surgical management (however, patient is a G0) - attempted to explain to patient and family again that this is an infection in the fallopian tubes (her mom stated that all the women have to have hysterectomy and have ovarian cancer in their family) reviewed again that this in an infection in tubes and surgery would result is significant morbidity at this time including poss hysterectomy and suzanna salpingectomy - infertiliy. Radiology stated that they were unable to drain. Will re-address with patient and family tomorrow too so that they fully understand the dx (3) PID (acute pelvic inflammatory disease) Is this a current diagnosis for this admission?: Yes Plan: see above. (4) Fever Qualifiers: Fever type: unspecified Qualified Code(s): R50.9 - Fever, unspecified Is this a current diagnosis for this admission?: Yes Plan: fever less than 99.9 since 0900 on 08/26. Cont Abx and antipyretics - Time Time Spent with patient: 25-34 minutes Medications reviewed and adjusted accordingly: Yes Anticipated discharge: Home Within: within 72 hours - Inpatient Certification Based on my medical assessment, after consideration of the patient's comorbidities, presenting symptoms, or acuity I expect that the services needed warrant INPATIENT care.: Yes I certify that my determination is in accordance with my understanding of Medicare's requirements for reasonable and necessary INPATIENT services [42 CFR 412.3e].: Yes Medical Necessity: Need For IV Fluids, Need for Pain Control, Need for IV Antibiotics Post Hospital Care: D/C Cassandra Developer Documentation
[2017-08-28] MEDS: CYCLOBENZAPRINE HCL 10 MG TABLET PO PRN ×3 (00:08→23:15)
[2017-08-28] MEDS: ZOLPIDEM TARTRATE 5 MG TABLET PO PRN (01:52)
[2017-08-28] MEDS: CEFOXITIN SODIUM 2 GM in NORMAL SALINE 100 ML IV SCH ×4 (03:24→20:36)
[2017-08-28] MEDS: OXYCODONE-ACETAMINOPHEN 5-325 MG TABLET PO PRN ×2 (08:52→15:22)
[2017-08-28] MEDS: METRONIDAZOLE 500 MG/NS RTU 500 MG/100 ML RTUPB IV SCH ×2 (11:02→21:20)
[2017-08-28] MEDS: NICOTINE 21 MG/24 HR PATCH.TD24 TD SCH (11:02)
--- NOTE | 2017-08-28 13:39 | PDOC PROGRESS REPORT ---
Subjective Progress Note for:: 08/28/17 Subjective:: pt states she feels much better Reason For Visit: TUBOOVARIAN ABSCESS,ACUTE PELVIC INFLAMMATORY Physical Exam - Physical Exam Vital Signs: Temp Pulse Resp BP Pulse Ox 98.2 F 71 16 100/56 L 98 08/28/17 11:17 08/28/17 11:17 08/28/17 11:17 08/28/17 11:17 08/28/17 11:17 Intake & Output 08/27/17 08/28/17 08/29/17 06:59 06:59 06:59 Intake Total 1800 500 Output Total 1900 903 Balance -100 -403 General appearance: PRESENT: no acute distress Respiratory exam: PRESENT: clear to auscultation suzanna GI/Abdominal exam: PRESENT: soft - Obstetrical Exam Adhexa: tender Result Laboratory Results: 08/27/17 06:47 Impressions: Abdomen/Pelvis CT 08/25/17 17:16 IMPRESSION: 11 cm complex right adnexal mass. 6 cm complex left adnexal mass. Differential includes pelvic inflammatory disease as well as complex cystic disease and endometriosis. Appendix is normal. Transvaginal US 08/25/17 22:14 IMPRESSION: Dilated fluid-filled tubular structure near the left adnexa, likely representing pyosalpinx/hydrosalpinx. Cystic lesions near the right adnexa, concerning for a tubo-ovarian abscess. 2011 [employer] [facility] [employer]- All Rights Reserved Assessment & Plan - Diagnosis (1) PID (acute pelvic inflammatory disease) Is this a current diagnosis for this admission?: Yes (2) TOA (tubo-ovarian abscess) Is this a current diagnosis for this admission?: Yes - Plan Summary Plan Summary: pt is improved. CBC ordered for AM .june d/c on po meds if wbc WNL and she remains afebrile
[2017-08-28] MEDS: HYDROMORPHONE HCL INJ/PF 2 MG/ML AMPULE IV PRN (20:35)
[2017-08-28] MEDS: DOXYCYCLINE HYCLATE 100 MG in NORMAL SALINE 250 ML IV SCH (23:15)
[2017-08-29] MEDS: HYDROMORPHONE HCL INJ/PF 2 MG/ML AMPULE IV PRN ×3 (00:21→18:57)
[2017-08-29] MEDS: ZOLPIDEM TARTRATE 5 MG TABLET PO PRN (02:32)
[2017-08-29] MEDS: CEFOXITIN SODIUM 2 GM in NORMAL SALINE 100 ML IV SCH ×4 (02:32→21:11)
[2017-08-29 06:36] LABS: ABSOLUTE BASOPHILS # (AUTO) 0.1 10^3/uL (0.0-0.2); ABSOLUTE MONOCYTES (AUTO) 1.6 10^3/uL (0.1-1.4); ABSOLUTE NEUT (AUTO) 10.6 10^3/uL (1.7-8.2); EOSINOPHILS % (AUTO) 0.2 % (0-6); HEMATOCRIT 34.3 % (36.0-47.0); HEMOGLOBIN 11.7 g/dL (12.0-15.5); LYMPHOCYTES % (AUTO) 7.7 % (13-45); MEAN CORPUSCULAR HEMOGLOBIN 30.5 pg (27.0-33.4); MEAN CORPUSCULAR HGB CONC 34.1 g/dL (32.0-36.0); MEAN CORPUSCULAR VOLUME 90 fl (80-97); MONOCYTES % (AUTO) 12.3 % (3-13); PLATELET COUNT 310 10^3/uL (150-450); RED BLOOD COUNT 3.83 10^6/uL (3.72-5.28); RED CELL DISTRIBUTION WIDTH 13.6 % (11.5-14.0); SEGMENTED NEUTROPHILS % (AUTO) 78.8 % (42-78); TOTAL CELLS COUNTED % (AUTO) 100 %; WHITE BLOOD COUNT 13.5 10^3/uL (4.0-10.5)
[2017-08-29] MEDS: NICOTINE 21 MG/24 HR PATCH.TD24 TD SCH (09:10)
[2017-08-29] MEDS: METRONIDAZOLE 500 MG/NS RTU 500 MG/100 ML RTUPB IV SCH ×2 (10:33→22:40)
--- NOTE | 2017-08-29 10:41 | PDOC PROGRESS REPORT ---
Subjective Progress Note for:: 08/29/17 Subjective:: indicates that she feels worse now and in "a lot of pain." (per RN patient was resting comfortably about 45 min ago.) Patient indicates that her pain is "all over" She is eating well per the RN but patient indicates that she "did not eat breakfast." Reason For Visit: TUBOOVARIAN ABSCESS,ACUTE PELVIC INFLAMMATORY Physical Exam - Physical Exam Vital Signs: Temp Pulse Resp BP Pulse Ox 99.7 F 98 20 114/64 98 08/29/17 08:17 08/29/17 08:17 08/29/17 08:17 08/29/17 08:17 08/29/17 08:17 Intake & Output 08/28/17 08/29/17 08/30/17 06:59 06:59 06:59 Intake Total 500 1175 Output Total 903 500 Balance -403 675 Weight 42.8 kg General appearance: PRESENT: cooperative, mild distress GI/Abdominal exam: PRESENT: soft - voluntary guarding. CVA exam is negative for tenderness - Obstetrical Exam Adhexa: tender Result Laboratory Results: 08/29/17 06:22 08/29/17 06:22 WBC 13.5 H RBC 3.83 Hgb 11.7 L Hct 34.3 L MCV 90 MCH 30.5 MCHC 34.1 RDW 13.6 Plt Count 310 Seg Neutrophils % 78.8 H Lymphocytes % 7.7 L Monocytes % 12.3 Eosinophils % 0.2 Basophils % 1.0 Absolute Neutrophils 10.6 H Absolute Lymphocytes 1.0 Absolute Monocytes 1.6 H Absolute Eosinophils 0.0 Absolute Basophils 0.1 Impressions: Abdomen/Pelvis CT 08/25/17 17:16 IMPRESSION: 11 cm complex right adnexal mass. 6 cm complex left adnexal mass. Differential includes pelvic inflammatory disease as well as complex cystic disease and endometriosis. Appendix is normal. Transvaginal US 08/25/17 22:14 IMPRESSION: Dilated fluid-filled tubular structure near the left adnexa, likely representing pyosalpinx/hydrosalpinx. Cystic lesions near the right adnexa, concerning for a tubo-ovarian abscess. 2010 [employer]- All Rights Reserved Assessment & Plan - Diagnosis (1) Fever Qualifiers: Fever type: unspecified Qualified Code(s): R50.9 - Fever, unspecified Is this a current diagnosis for this admission?: Yes (2) Leukocytosis Qualifiers: Leukocytosis type: unspecified Qualified Code(s): D72.829 - Elevated white blood cell count, unspecified Is this a current diagnosis for this admission?: Yes (3) PID (acute pelvic inflammatory disease) Is this a current diagnosis for this admission?: Yes (4) TOA (tubo-ovarian abscess) Is this a current diagnosis for this admission?: Yes - Time Time Spent with patient: Less than 15 minutes Anticipated discharge: Home Within: within 24 hours - Will repeat pelvic sono today to assess her TOA. White count has been steadily improving so unsure as to the reason for her claims for increased pain.
--- NOTE | 2017-08-29 13:53 | RADIOLOGY REPORT (SQ) ---
EXAM DESCRIPTION: U/S NON-OB PELVIS LTD W/O DOP COMPLETED DATE/TIME: 08/29/2017 12:48 pm REASON FOR STUDY: TOA on previous imaging. worsening pain COMPARISON: Pelvic ultrasound and CT abdomen and pelvis 08/25/2017. TECHNIQUE: Dynamic and static grayscale images acquired of the pelvis via transabdominal approach an d recorded on PACS. Additional selected color Doppler images recorded. LIMITATIONS: None. FINDINGS: UTERUS: The uterus measures 10.8 x 4.2 x 2.5 cm. No focal myometrial mass was seen. ENDOMETRIAL STRIPE: The endometrium measures 5 mm in double wall thickness. CERVIX: The cervix measures 3.4 cm in length. RIGHT OVARY AND DOPPLER: At the right adnexa there is a heterogeneous complex lesion with cystic area s measuring 8.9 x 4.6 x 5.1 cm. Flow by color Doppler was noted. LEFT OVARY AND DOPPLER: At the left adnexa there is a heterogeneous complex lesion with cystic areas measuring 4.4 x 2.9 x 4.2 cm. Flow by color Doppler was noted. FREE FLUID: None noted. IMPRESSION: Heterogeneous lesions with cystic areas at the bilateral adnexa, may represent tubo-ovar quentin abscesses, ovarian neoplasm cannot be excluded. Clinical correlation recommended. TECHNICAL DOCUMENTATION: JOB ID: [id number]- All Rights Reserved Rev-06/27 Reading location - IP/workstation name: [email or web address]
[2017-08-29] MEDS: DOXYCYCLINE HYCLATE 100 MG in NORMAL SALINE 250 ML IV SCH (14:00)
[2017-08-29] MEDS: CYCLOBENZAPRINE HCL 10 MG TABLET PO PRN (14:00)
[2017-08-29] MEDS: OXYCODONE-ACETAMINOPHEN 5-325 MG TABLET PO PRN ×2 (16:47→23:37)
[2017-08-30] MEDS: DOXYCYCLINE HYCLATE 100 MG in NORMAL SALINE 250 ML IV SCH ×2 (00:08→09:18)
[2017-08-30] MEDS: HYDROMORPHONE HCL INJ/PF 2 MG/ML AMPULE IV PRN ×4 (00:53→17:10)
[2017-08-30] MEDS: CEFOXITIN SODIUM 2 GM in NORMAL SALINE 100 ML IV SCH ×4 (02:44→20:20)
[2017-08-30] MEDS: ZOLPIDEM TARTRATE 5 MG TABLET PO PRN (02:45)
[2017-08-30] MEDS ORDERED: BISACODYL 10 MG SUPP.RECT PR PRN (05:04)
[2017-08-30 07:25] LABS: ABSOLUTE BASOPHILS # (AUTO) 0.1 10^3/uL (0.0-0.2); ABSOLUTE LYMPHOCYTES (AUTO) 1.3 10^3/uL (0.5-4.7); ABSOLUTE MONOCYTES (AUTO) 1.5 10^3/uL (0.1-1.4); ABSOLUTE NEUT (AUTO) 7.7 10^3/uL (1.7-8.2); EOSINOPHILS % (AUTO) 0.5 % (0-6); LYMPHOCYTES % (AUTO) 12.5 % (13-45); MEAN CORPUSCULAR HEMOGLOBIN 30.8 pg (27.0-33.4); MEAN CORPUSCULAR HGB CONC 34.3 g/dL (32.0-36.0); MEAN CORPUSCULAR VOLUME 90 fl (80-97); PLATELET COUNT 352 10^3/uL (150-450); RED BLOOD COUNT 3.89 10^6/uL (3.72-5.28); RED CELL DISTRIBUTION WIDTH 13.8 % (11.5-14.0); TOTAL CELLS COUNTED % (AUTO) 100 %; WHITE BLOOD COUNT 10.7 10^3/uL (4.0-10.5)
[2017-08-30] MEDS: OXYCODONE-ACETAMINOPHEN 5-325 MG TABLET PO PRN ×3 (07:44→22:48)
--- NOTE | 2017-08-30 07:59 | PDOC PROGRESS REPORT ---
Subjective Progress Note for:: 08/30/17 Subjective:: feeling better and ordering breakfast Reason For Visit: TUBOOVARIAN ABSCESS,ACUTE PELVIC INFLAMMATORY Physical Exam - Physical Exam Vital Signs: Temp Pulse Resp BP Pulse Ox 97.9 F 85 18 124/84 99 08/30/17 03:55 08/30/17 03:55 08/30/17 03:55 08/30/17 03:55 08/30/17 03:55 Intake & Output 08/29/17 08/30/17 08/31/17 06:59 06:59 06:59 Intake Total 1175 1100 Output Total 500 Balance 675 1100 Weight 42.8 kg General appearance: PRESENT: no acute distress, cooperative, well-developed GI/Abdominal exam: PRESENT: soft, tenderness - improved tenderness from yesterday - Obstetrical Exam Adhexa: tender Result Laboratory Results: 08/30/17 06:56 08/30/17 06:56 WBC 10.7 H RBC 3.89 Hgb 12.0 Hct 35.0 L MCV 90 MCH 30.8 MCHC 34.3 RDW 13.8 Plt Count 352 Seg Neutrophils % 72.0 Lymphocytes % 12.5 L Monocytes % 14.0 H Eosinophils % 0.5 Basophils % 1.0 Absolute Neutrophils 7.7 Absolute Lymphocytes 1.3 Absolute Monocytes 1.5 H Absolute Eosinophils 0.0 Absolute Basophils 0.1 Impressions: Abdomen/Pelvis CT 08/25/17 17:16 IMPRESSION: 11 cm complex right adnexal mass. 6 cm complex left adnexal mass. Differential includes pelvic inflammatory disease as well as complex cystic disease and endometriosis. Appendix is normal. Transvaginal US 08/25/17 22:14 IMPRESSION: Dilated fluid-filled tubular structure near the left adnexa, likely representing pyosalpinx/hydrosalpinx. Cystic lesions near the right adnexa, concerning for a tubo-ovarian abscess. 2011 [employer]- All Rights Reserved Pelvis Ultrasound 08/29/17 10:31 IMPRESSION: Heterogeneous lesions with cystic areas at the bilateral adnexa, may represent tubo-ovarian abscesses, ovarian neoplasm cannot be excluded. Clinical correlation recommended. Assessment & Plan - Diagnosis (1) Fever Qualifiers: Fever type: unspecified Qualified Code(s): R50.9 - Fever, unspecified Is this a current diagnosis for this admission?: Yes (2) Leukocytosis Qualifiers: Leukocytosis type: unspecified Qualified Code(s): D72.829 - Elevated white blood cell count, unspecified Is this a current diagnosis for this admission?: Yes (3) PID (acute pelvic inflammatory disease) Is this a current diagnosis for this admission?: Yes (4) TOA (tubo-ovarian abscess) Is this a current diagnosis for this admission?: Yes - Plan Summary Plan Summary: discussed sono results from yesterday. TOAs are a bit smaller and heading in the right direction. Explained that as soon as she is able to tolerate pain without IV pain medication then can discharge home with PO antibiotics and pain medication.
[2017-08-30] MEDS: DOCUSATE SODIUM 100 MG CAPSULE PO SCH ×2 (09:13→17:06)
[2017-08-30] MEDS: METRONIDAZOLE 500 MG/NS RTU 500 MG/100 ML RTUPB IV SCH (09:13)
[2017-08-30] MEDS: NICOTINE 21 MG/24 HR PATCH.TD24 TD SCH (09:13)
[2017-08-30] MEDS: ONDANSETRON 4 MG TAB.RAPDIS PO PRN (14:11)
[2017-08-30] MEDS: CYCLOBENZAPRINE HCL 10 MG TABLET PO PRN (19:35)
[2017-08-30] MEDS ORDERED: DOXYCYCLINE HYCLATE 100 MG in DEXTROSE 5%-WATER 250 ML IV SCH (22:00)
[2017-08-30] MEDS ORDERED: DOXYCYCLINE HYCLATE 100 MG TABLET PO ONE (22:45)
[2017-08-31] MEDS: ZOLPIDEM TARTRATE 5 MG TABLET PO PRN (00:02)
[2017-08-31] MEDS: OXYCODONE-ACETAMINOPHEN 5-325 MG TABLET PO PRN ×2 (05:20→11:37)
--- NOTE | 2017-08-31 07:54 | PDOC PROGRESS REPORT ---
Subjective Subjective:: Pain continues, not as severe, but still requires pain meds. Reason For Visit: TUBOOVARIAN ABSCESS,ACUTE PELVIC INFLAMMATORY Physical Exam - Physical Exam Vital Signs: Temp Pulse Resp BP Pulse Ox 98.2 F 96 18 122/76 99 08/31/17 03:13 08/31/17 03:13 08/31/17 03:13 08/31/17 03:13 08/31/17 03:13 Intake & Output 08/30/17 08/31/17 09/01/17 06:59 06:59 06:59 Intake Total 1100 1450 Balance 1100 1450 - Obstetrical Exam Adhexa: tender Result Laboratory Results: 08/30/17 06:56 Impressions: Abdomen/Pelvis CT 08/25/17 17:16 IMPRESSION: 11 cm complex right adnexal mass. 6 cm complex left adnexal mass. Differential includes pelvic inflammatory disease as well as complex cystic disease and endometriosis. Appendix is normal. Transvaginal US 08/25/17 22:14 IMPRESSION: Dilated fluid-filled tubular structure near the left adnexa, likely representing pyosalpinx/hydrosalpinx. Cystic lesions near the right adnexa, concerning for a tubo-ovarian abscess. 2011 [employer]- All Rights Reserved Pelvis Ultrasound 08/29/17 10:31 IMPRESSION: Heterogeneous lesions with cystic areas at the bilateral adnexa, may represent tubo-ovarian abscesses, ovarian neoplasm cannot be excluded. Clinical correlation recommended.
[2017-08-31] MEDS ORDERED: DOXYCYCLINE HYCLATE 100 MG TABLET PO SCH (10:00)
--- NOTE | 2017-08-31 10:05 | PDOC DISCHARGE SUMMARY ---
General - Admit/Disc Date/PCP Admission Date/Primary Care Provider: 08/26/17 02:00 Discharge Date: 08/31/17 - Discharge Diagnosis (1) Fever Is this a current diagnosis for this admission?: Yes (2) Leukocytosis Is this a current diagnosis for this admission?: Yes (3) PID (acute pelvic inflammatory disease) Is this a current diagnosis for this admission?: Yes (4) TOA (tubo-ovarian abscess) Is this a current diagnosis for this admission?: Yes - Additional Information Resuscitation Status: Full Code Home Medications: No Home Medications 08/26/17 History of Present Illness History of Present Illness: RUBEN GREER is a 32 year old female G0 who indicates she started feeling poorly on 08/24/2017. Began having diarrhea and nausea but no vomiting. Lower abdominal pain diffuse through the lower abdomen Hospital Course Hospital Course: has been in hospital x 7 days. Leukocytosis has slowly resolved. TOAs are somewhat smaller on sono. Patient is reporting uncontrolled pain but is sleeping comfortably at each visit from provider. Last night her IV infiltrated and she refused starting another. Will discharge home now and have her follow up in a week at office. Physical Exam - Physical Exam Vital Signs: Temp Pulse Resp BP Pulse Ox 98.2 F 96 18 122/76 99 08/31/17 03:13 08/31/17 03:13 08/31/17 03:13 08/31/17 03:13 08/31/17 03:13 Intake & Output 08/30/17 08/31/17 09/01/17 06:59 06:59 06:59 Intake Total 1100 1450 Balance 1100 1450 General appearance: PRESENT: no acute distress, cooperative GI/Abdominal exam: PRESENT: soft - nontender with palpation. - Obstetrical Exam Adhexa: tender Result Laboratory Results: 08/30/17 06:56 Impressions: Abdomen/Pelvis CT 08/25/17 17:16 IMPRESSION: 11 cm complex right adnexal mass. 6 cm complex left adnexal mass. Differential includes pelvic inflammatory disease as well as complex cystic disease and endometriosis. Appendix is normal. Transvaginal US 08/25/17 22:14 IMPRESSION: Dilated fluid-filled tubular structure near the left adnexa, likely representing pyosalpinx/hydrosalpinx. Cystic lesions near the right adnexa, concerning for a tubo-ovarian abscess. 2011 [employer]- All Rights Reserved Pelvis Ultrasound 08/29/17 10:31 IMPRESSION: Heterogeneous lesions with cystic areas at the bilateral adnexa, may represent tubo-ovarian abscesses, ovarian neoplasm cannot be excluded. Clinical correlation recommended. Plan Discharge Plan: patient to be discharged home with po pain medications, stool softeners and antibiotics. Have explained to the patient that as she has no IV access now and declines further access, that her medications can be done on outpatient basis. She will follow up in one week with the office. Strict precautions for returning to the ER if there is any worsening of symptoms. Counseled on appropriate pain levels. Time Spent: Less than 30 Minutes
[2017-08-31 10:32] VITALS: BP 111/80
[2017-08-31] MEDS: DOCUSATE SODIUM 100 MG CAPSULE PO SCH (11:00)
[2017-08-31] MEDS: NICOTINE 21 MG/24 HR PATCH.TD24 TD SCH (11:16)
== END 2017-08-31 12:44 | disposition home or self-care (01) | DRG 759 ==
LOC: ER 10:19 → EH 08-26 02:00 → 2S 08-26 04:56
PROVIDERS: ADMIT Obstetrics & Gynecology; ATTEND Obstetrics & Gynecology
DX: N70.93 Salpingitis and oophoritis, unspecified (principal); N73.9 Female pelvic inflammatory disease, unspecified; N80.9 Endometriosis, unspecified; A59.09 Other urogenital trichomoniasis; F17.210 Nicotine dependence, cigarettes, uncomplicated; Z80.3 Family history of malignant neoplasm of breast; Z80.41 Family history of malignant neoplasm of ovary
CPT/HCPCS: 36415; 74177; 76830; 76857; 80053; 81001; 81025; 83605; 83690; 85025; 87040; 87086; 87088; 87186; 87210; 87491; 87591; 93976; 94799; 96361; 96365; 96367; 96375; 96376; 99285; J0694; J1170; J2270; J2543; J3010; J3490; J7030; J7050; J7060; S0119

== ENCOUNTER 2018-08-16 06:18 | Emergency (ER) | payer SELFPAY ==
[2018-08-16] MEDS ORDERED: NORMAL SALINE 1000 ML 1,000 ML IV ONE (06:47)
--- NOTE | 2018-08-16 06:52 | ER Document Report ---
ED GI/ - General Chief Complaint: Vaginal Bleeding Stated Complaint: VAGINAL BLEEDING Time Seen by Provider: 08/16/18 06:38 Mode of Arrival: Ambulatory Information source: Patient, [facility] Records Notes: This 33-year-old female patient comes emergency room complaining of onset just after midnight of heavy vaginal bleeding with large clots. She has felt a little dizzy and lightheaded when standing up. She states her last menstrual period was about a month ago. She is not on any control, but also states that there is no chance of being . Her past history is significant for a TOA with PID one year ago. She was admitted to the hospital and medically managed at that time. TRAVEL OUTSIDE OF THE [place] 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 Lives with: Parents Family History: Reviewed & Not Pertinent - Past Medical History Cardiac Medical History: Reports: None Pulmonary Medical History: Reports: None EENT Medical History: Reports: None Neurological Medical History: Reports: None Endocrine Medical History: Reports: None Renal/ Medical History: Reports: Other - TOA on 08/26/2017 Surgical Hx: Negative - Immunizations Immunizations up to date: No Hx Diphtheria, Pertussis, Tetanus Vaccination: Yes Review of Systems - Review of Systems Constitutional: No symptoms reported EENT: No symptoms reported Cardiovascular: No symptoms reported Respiratory: No symptoms reported Gastrointestinal: No symptoms reported Genitourinary: No symptoms reported Female Genitourinary: See HPI Musculoskeletal: No symptoms reported Skin: No symptoms reported Hematologic/Lymphatic: No symptoms reported Neurological/Psychological: No symptoms reported Physical Exam - Vital signs Vitals: Temp Pulse Resp BP Pulse Ox 97.7 F 105 H 16 103/67 100 08/16/18 06:34 08/16/18 06:34 08/16/18 06:34 08/16/18 06:34 08/16/18 06:34 Interpretation: Tachycardic - General General appearance: Appears well, Alert In distress: None - HEENT Head: Normocephalic, Atraumatic Eyes: Normal Pupils: PERRL Neck: Normal - Respiratory Respiratory status: No respiratory distress Chest status: Nontender Breath sounds: Normal - Cardiovascular Rhythm: Regular Heart sounds: Normal auscultation Murmur: No - Abdominal Inspection: Normal Distension: No distension Bowel sounds: Normal Tenderness: Nontender - Genitourinary External exam: Other - Patient has bright red blood running out of the vagina. There are no clots noted at this time. Will defer speculum exam at this time and get transvaginal ultrasound. - Extremities General upper extremity: Normal inspection General lower extremity: Normal inspection - Neurological Neuro grossly intact: Yes - Psychological Associated symptoms: Normal affect, Normal mood - Skin Skin Temperature: Warm Skin Moisture: Dry Skin Color: Normal Course - Vital Signs Vital signs: Temp Pulse Resp BP Pulse Ox 97.7 F 105 H 16 103/67 100 08/16/18 06:34 08/16/18 06:34 08/16/18 06:34 08/16/18 06:34 08/16/18 06:34 - Laboratory Result Diagrams: 08/16/18 07:14 08/16/18 08:13 Laboratory results interpreted by me: 08/16/18 08/16/18 07:14 08:13 RDW 15.9 H Chloride 111 H Carbon Dioxide 20 L Creatinine 0.42 L AST 138 H ALT 122 H Serum Alcohol 325 H* - Diagnostic Test Radiology reviewed: Reports reviewed - Transvaginal ultrasound shows normal endometrium. There is a thick-walled fluid-filled tubular structure in the right adnexa representing likely hydrosalpinx. It is much smaller than the same structure on CT on 08/25/2017 when she was admitted for TOA. - Consults Dr. Lou Time consulted: 10:25 Consulted provider: follow-up in office Discharge - Discharge Clinical Impression: Dysfunctional uterine bleeding, Hydrosalpinx Alcohol intoxication Qualifiers: Complication of substance-induced condition: uncomplicated Qualified Code(s): F10.920 - Alcohol use, unspecified with intoxication, uncomplicated Condition: Stable Disposition: HOME, SELF-CARE Additional Instructions: Acute Alcohol Intoxication Your evaluation revealed very high levels of alcohol. You can from drinking a large amount of alcohol rapidly! Further, there's the risk of falls, traffic accidents, and fights. A high portion (about 50 percent) of the serious injuries seen in hospital emergency rooms are caused by alcohol. Alcohol overdosage is usually due to an underlying emotional or psychiatric problem. You may benefit from counselling. If "binge" drinking is an ongoing problem for you, or if you drink ANY AMOUNT of alcohol EVERY day, you most likely have a tendency to alcoholism. You should avoid alcohol totally. We can refer you for treatment. Persons with alcohol problems are often also prone to other addictions -- you should discuss any use of medications or drugs with the doctor. You should be watched at home for the next several hours by someone who has not been drinking. Get extra fluids for the next 24 hours. Call the doctor if there is repeated vomiting, increasing headache, decreasing level of alertness, or any other worsening. Dysfunctional Uterine Bleeding You're having an abnormal pattern of bleeding from the uterus. We call this dysfunctional uterine bleeding. It is most often caused by a hormone imbalance. Most often this is temporary and no cause is found. There's no evidence of , tumors, or infection as a cause. Dysfunctional uterine bleeding is especially common at times when the normal menstrual cycle is disturbed -- whether by recent , use of control pills or hormones, or impending menopause. Some medical problems lead to dysfunctional bleeding, such as obesity or being very underweight, stress, or thyroid problems. In many cases, the menstrual cycle will return to normal without any treatment. Where the bleeding is significant, high-dose estrogen will usually stop the bleeding within a day of two. A cycle or two of hormones ( control pills) can help restore the uterus to normal. In some patients where bleeding is severe or resistant to treatment, a D&C is required. A endometrial biopsy (a sample of the inside of the uterus) may be recommended for some older women. This would be done by a gynecology specialist. Treatment for anemia may be required if bleeding is severe. You should rest and avoid intercourse until the bleeding is controlled. Call the doctor or return for re-examination if you feel faint, have increasing pain, or have a major increase in the amount of bleeding. Start the Provera as prescribed tomorrow. Try to reduce your alcohol consumption. Call [facility] tomorrow to schedule an appointment with Dr. Lou this week. RETURN TO THE EMERGENCY ROOM IF ANY NEW OR WORSENING SYMPTOMS. Prescriptions: Medroxyprogesterone Acet [Provera 10 Mg Tablet] 10 mg PO DAILY #10 tablet
[2018-08-16 07:47] LABS: ABSOLUTE BASOPHILS # (AUTO) 0.1 10^3/uL (0.0-0.2); ABSOLUTE LYMPHOCYTES (AUTO) 0.9 10^3/uL (0.5-4.7); ABSOLUTE MONOCYTES (AUTO) 0.3 10^3/uL (0.1-1.4); ABSOLUTE NEUT (AUTO) 3.4 10^3/uL (1.7-8.2); BASOPHILS % (AUTO) 1.8 % (0-2); HEMATOCRIT 38.8 % (36.0-47.0); HEMOGLOBIN 13.1 g/dL (12.0-15.5); LYMPHOCYTES % (AUTO) 19.5 % (13-45); MEAN CORPUSCULAR HEMOGLOBIN 32.8 pg (27.0-33.4); MEAN CORPUSCULAR HGB CONC 33.7 g/dL (32.0-36.0); MEAN CORPUSCULAR VOLUME 97 fl (80-97); MONOCYTES % (AUTO) 7.1 % (3-13); PLATELET COUNT 217 10^3/uL (150-450); RED BLOOD COUNT 3.98 10^6/uL (3.72-5.28); RED CELL DISTRIBUTION WIDTH 15.9 % (11.5-14.0); SEGMENTED NEUTROPHILS % (AUTO) 70.6 % (42-78); TOTAL CELLS COUNTED % (AUTO) 100 %; WHITE BLOOD COUNT 4.7 10^3/uL (4.0-10.5)
[2018-08-16] MEDS ORDERED: KETOROLAC TROMETHAMINE INJ/PF 30 MG/1 ML SDV IV ONE (08:19)
[2018-08-16 08:35] LABS: INTERNATIONAL RATION (INR) 0.96; PROTHROMBIN TIME 12.8 SEC (11.4-15.4)
[2018-08-16 08:45] LABS: ALANINE AMINOTRANSFERASE 122 U/L (9-52); ALBUMIN 4.2 g/dL (3.5-5.0); ALKALINE PHOSPHATASE 95 U/L (38-126); ANION GAP 14 (5-19); ASPARTATE AMINO TRANSFERASE 138 U/L (14-36); BILIRUBIN,DIRECT 0.3 mg/dL (0.0-0.4); BILIRUBIN,TOTAL 0.3 mg/dL (0.2-1.3); BLOOD UREA NITROGEN 10 mg/dL (7-20); CALCIUM 8.7 mg/dL (8.4-10.2); CARBON DIOXIDE 20 mmol/L (22-30); CHLORIDE 111 mmol/L (98-107); GLUCOSE 86 mg/dL (75-110); POTASSIUM 4.2 mmol/L (3.6-5.0)
[2018-08-16 08:56] LABS: ALCOHOL 325 mg/dL (NONE DETECTED)
[2018-08-16] MEDS ORDERED: MEDROXYPROGESTERONE ACET 10 MG TABLET PO ONE (09:40)
--- NOTE | 2018-08-16 09:50 | RADIOLOGY REPORT (SQ) ---
EXAM DESCRIPTION: U/S NON-OB PELVIS TV W/O DOP COMPLETED DATE/TIME: 08/16/2018 9:12 am REASON FOR STUDY: Heavy vaginal bleeding with large clots COMPARISON: Pelvic ultrasound 08/25/2017 CT abdomen pelvis 08/25/2017 TECHNIQUE: Dynamic and static grayscale images acquired of the pelvis via transvaginal approach and recorded on PACS. Additional selected color Doppler and spectral images recorded. LIMITATIONS: None. FINDINGS: UTERUS: Contour normal. No mass. Uterus is 11 x 4.2 x 3 cm in size. No fibroids. ENDOMETRIAL STRIPE: No focal or generalized thickening. No masses. Endometrial stripe 5 mm in thickn ess. CERVIX: No nabothian cysts. Closed, 3.4 cm in length. RIGHT OVARY AND DOPPLER: Normal size, 3 by 2.4 cm in size. No worrisome masses. Normal arterial vascu lar flow without evidence for torsion. In the right adnexa, a thick walled fluid filled tubular structure is present, 2.6 x 1.3 cm in size l ikely representing a hydrosalpinx (was 9 x 3.5 cm in size on CT 08/25/2017). LEFT OVARY AND DOPPLER: Normal size, 4.4 x 2.9 x 4.2 cm in size. Left ovary 3.8 by 4.2 x 4 cm simple cyst. No worrisome masses. Normal arterial vascular flow without evidence for torsion. FREE FLUID: None noted. OTHER: Results discussed with Dr. Lewis IMPRESSION: Normal sized uterus, grossly normal endometrial stripe. Small right adnexal hydrosalpinx 4.2 cm left ovarian simple cyst TECHNICAL DOCUMENTATION: JOB ID: [id number] [id number]- All Rights Reserved Rev-06/27 Reading location - IP/workstation name: [email or web address]
[2018-08-16 10:57] VITALS: BP 114/57
== END 2018-08-16 10:58 | disposition home or self-care (01) ==
LOC: ER 06:18
DX: N70.11 Chronic salpingitis (principal); N93.8 Other specified abnormal uterine and vaginal bleeding; F10.920 Alcohol use, unspecified with intoxication, uncomplicated; R42 Dizziness and giddiness; F17.210 Nicotine dependence, cigarettes, uncomplicated
CPT/HCPCS: 99284; 96361; 51701; 96374; 86900; 86901; 36415; 86850; 80307; 84703; 85025; 85610; 80053; 76830; J3490; J1885; J7030